=== PATIENT | male | born 1980 | race Hispanic/Latino ===

== ENCOUNTER 2018-01-09 13:52 | Emergency (ER) | payer OTHER ==
[~2018-01-09] VITALS: Ht 170.2 cm; Wt 85.0 kg
[2018-01-09] MEDS ORDERED: MOTRIN400 MG PO (15:10)
[2018-01-09 15:15] VITALS: BP 132/83
== END 2018-01-09 15:22 | disposition home or self-care (01) | DRG 605 ==
LOC: ED 13:52
DX: S30.0XXA Contusion of lower back and pelvis, initial encounter (principal); S70.02XA Contusion of left hip, initial encounter; M25.552 Pain in left hip; S76.012A Strain of muscle, fascia and tendon of left hip, initial encounter; S29.012A Strain of muscle and tendon of back wall of thorax, initial encounter; W11.XXXA Fall on and from ladder, initial encounter; Y93.89 Activity, other specified; Y92.73 Farm field as the place of occurrence of the external cause